=== PATIENT | female | born 1975 | race Caucasian/White ===

== ENCOUNTER → 2021-10-20 15:38 | Outpatient (CLI) | payer OTHER, SELFPAY ==
--- NOTE | ~2021-10-20 | MM_ITS ---
EXAMINATION: MM screening nithya BI w minor HISTORY: Screening mammogram TECHNIQUE: Craniocaudal and mediolateral oblique 3-D tomosynthesis images were obtained and synthetic 2-D images were generated. CAD analysis was submitted and interpreted. COMPARISON: 09/20/2020, 08/25/2019, 07/29/2018 bilateral screening mammogram examinations BREAST PARENCHYMAL COMPOSITION: There are scattered areas of fibroglandular density. FINDINGS: Stable 6.5 mm circumscribed opacity in the posterior upper outer left breast, consistent wi th benign stable lymph node. Low-density circumscribed 5 mm opacity in the upper mid right breast, with benign mammographic featur es including halo sign. There is no evidence of suspicious mass, calcification, or architectural dist ortion to suggest malignancy in either breast. There has been no suspicious interval change. IMPRESSION: 1. No mammographic evidence of malignancy. 2. Recommend routine screening mammography in one year. BI-RADS Category 2: Benign finding(s). Reviewed, dictated and finalized at location A.
== END ==
PROVIDERS: PCP Obstetrics & Gynecology Gynecology; Visit Provider Obstetrics & Gynecology Gynecology
DX: Z12.31 Encounter for screening mammogram for malignant neoplasm of breast (principal)
CPT/HCPCS: 77063; 77067

== ENCOUNTER 2022-02-06 00:32 | Day surgery (SDC) | payer OTHER, SELFPAY ==
[2022-01-24 11:46] VITALS: BMI 28.3
[2022-02-06 06:45] VITALS: BP 151/56; PULSE 90; RESP 18; TEMP 36.1; O2SAT 100
[2022-02-06] MEDS: LACTATED RINGERS 1,000 ML 150 ML IV CONT (07:00)
--- NOTE | 2022-02-06 07:49 | PM.HPGS ---
History of Present Illness History of Present Illness Consent: Risks, benefits, and alternatives have been discussed and questions answered. Patient agrees to proceed with procedure. Chief complaint: neoplasm screening Narrative: Amanda Martinez is a 46 year old female here for first screening colonoscopy Review of Systems Constitutional: Constitutional: Denies headache(s) and Denies weakness Eyes: Eyes: Denies blurry vision ENT: Reports Normal hearing present, Denies headache(s) and Denies neck pain Cardiovascular: Cardiovascular: Denies chest pain and Denies dyspnea Respiratory: Respiratory: Denies dyspnea Gastrointestinal: Gastrointestinal: Reports no additional gastrointestinal complaints Genitourinary: Genitourinary: Denies dysuria Musculoskeletal: Musculoskeletal: Denies neck pain Integumentary/Breasts: Skin/Breast: Denies dry skin Neurologic: Reports Normal hearing present, Denies headache(s) and Denies weakness Psychiatric: Psychiatric: Denies anxiety Endocrine: Endocrine: Denies change in body appearance Hematologic/Lymphatic: Hematologic/Lymphatic: Denies easy bleeding Allergic/Immunologic: Allergic/Immunologic: Denies urticaria PMFSH Past Medical History Medical History (Updated 02/06/22 @ 07:49 by Jovanny Balderrama MD) Colon cancer screening Elevated platelet count HTN (hypertension) Mixed hyperlipidemia Raynaud phenomenon Vitamin D deficiency Family History Family History Mother Diabetes mellitus Heart attack Breast cancer Rheumatoid arthritis Congestive heart failure Pacemaker Other Heart disease Acute myocardial infarction Father Hypertension Mixed hyperlipidemia Father Hypertension Mother Family history of premature coronary heart disease Hypertension Family history of rheumatoid arthritis Family history of elevated blood lipids Family history of diabetes mellitus in first degree relative Grandparent Acute myocardial infarction, Onset Age: 65 Grandmother- Other Family history of lupus erythematosus Social History Social History (Updated 08/30/21 @ 10:36 by Lana Paige) Social History: Smoking status: Never smoker Second hand tobacco smoke exposure: No Alcohol intake: current Drinks per week: 1 Alcohol use details: once a month Substance use: never Substance use type: does not use Living arrangements: with family Additional occupation/education comments: stay at home mom Gender identity (if verbalized by the patient): Female Sexual Orientation (if Verbalized by the Patient): Straight or Heterosexual Spiritual care concerns: No Meds Home Medications and Allergies Home Medications Medication Instructions Recorded Confirmed Type cholecalciferol (vitamin D3) 125 5,000 unit PO DAILY 07/22/19 01/24/22 History mcg (5,000 unit) tablet multivitamin 1 tablet PO DAILY 07/22/19 01/24/22 History norgestimate-ethinyl estradiol 1 tablet PO DAILY 07/22/19 01/24/22 History 0.18 mg/0.215mg/0.25mg-35 mcg(28)tablet (Tri-Sprintec (28)) omega-3 fatty acids 1,000 mg 2,000 mg PO BID 05/12/20 01/24/22 History capsule (Fish Oil Concentrate) cetirizine 10 mg tablet 10 mg PO DAILY 03/08/21 01/24/22 History vitamin B complex 1 cap PO DAILY 03/08/21 01/24/22 History losartan 50 mg-hydrochlorothiazide 1 tablet PO DAILY #90 tabs 08/30/21 01/24/22 Rx 12.5 mg tablet azelastine 137 mcg (0.1 %) nasal 1 spray intranasal Q12H PRN other 01/24/22 01/24/22 History spray aerosol rosuvastatin 5 mg tablet 5 mg PO DAILY 01/24/22 01/24/22 History Allergies Allergy/AdvReac Type Severity Reaction Status Date / Time amlodipine Allergy Unknown arthralgia Verified 02/06/22 06:44 codeine AdvReac Unknown SEVERE Unverified 02/06/22 06:44 NAUSEA Vital Signs Vital Signs - 24 hr 02/06/22 06:45 Temperature 97 F L Pulse Rate 90 Re
--- NOTE | 2022-02-06 07:50 | WPDANESEPPF ---
Anes - Initial Pre Proc Eval Procedure: Operation Date: 02/06/22 08:00 Proposed Procedures p Screening Colonoscopy - Jovanny Balderrama MD Date/Time: 02/06/22 07:50 Surgeon: Jovanny Balderrama MD Pre Op Diagnosis: neoplasm screening Patient Data Age: 46 Gender: F Height: 1.68 m Weight: 80.2 kg Last Vital Signs Temp 97 F L 02/06/22 06:45 Pulse 90 02/06/22 06:45 Resp 18 02/06/22 06:45 BP 151/56 H 02/06/22 06:45 Pulse Ox 100 02/06/22 06:45 O2 Del Method Room Air 02/06/22 06:45 Allergies Allergy/AdvReac Type Severity Reaction Status Date / Time amlodipine Allergy Unknown arthralgia Verified 02/06/22 06:44 codeine AdvReac Unknown SEVERE Unverified 02/06/22 06:44 NAUSEA Home Medications Medication Instructions Recorded Confirmed Type cholecalciferol (vitamin D3) 125 5,000 unit PO DAILY 07/22/19 01/24/22 History mcg (5,000 unit) tablet multivitamin 1 tablet PO DAILY 07/22/19 01/24/22 History norgestimate-ethinyl estradiol 1 tablet PO DAILY 07/22/19 01/24/22 History 0.18 mg/0.215mg/0.25mg-35 mcg(28)tablet (Tri-Sprintec (28)) omega-3 fatty acids 1,000 mg 2,000 mg PO BID 05/12/20 01/24/22 History capsule (Fish Oil Concentrate) cetirizine 10 mg tablet 10 mg PO DAILY 03/08/21 01/24/22 History vitamin B complex 1 cap PO DAILY 03/08/21 01/24/22 History losartan 50 mg-hydrochlorothiazide 1 tablet PO DAILY #90 tabs 08/30/21 01/24/22 Rx 12.5 mg tablet azelastine 137 mcg (0.1 %) nasal 1 spray intranasal Q12H PRN other 01/24/22 01/24/22 History spray aerosol rosuvastatin 5 mg tablet 5 mg PO DAILY 01/24/22 01/24/22 History Patient hx anesthesia problems: none Family hx anesthesia problems: none Results Review: All pre-operative results and documents have been reviewed as part of the pre-operative evaluation. [facility] Past Medical History Medical History (Updated 02/06/22 @ 07:49 by Jovanny Balderrama MD) Colon cancer screening Elevated platelet count HTN (hypertension) Mixed hyperlipidemia Raynaud phenomenon Vitamin D deficiency Family History Family History Mother Diabetes mellitus Heart attack Breast cancer Rheumatoid arthritis Congestive heart failure Pacemaker Other Heart disease Acute myocardial infarction Father Hypertension Mixed hyperlipidemia Father Hypertension Mother Family history of premature coronary heart disease Hypertension Family history of rheumatoid arthritis Family history of elevated blood lipids Family history of diabetes mellitus in first degree relative Grandparent Acute myocardial infarction, Onset Age: 65 Grandmother- Other Family history of lupus erythematosus Social History Social History (Updated 08/30/21 @ 10:36 by Lana Paige) Social History: Smoking status: Never smoker Second hand tobacco smoke exposure: No Alcohol intake: current Drinks per week: 1 Alcohol use details: once a month Substance use: never Substance use type: does not use Living arrangements: with family Additional occupation/education comments: stay at home mom Gender identity (if verbalized by the patient): Female Sexual Orientation (if Verbalized by the Patient): Straight or Heterosexual Spiritual care concerns: No Anes - Eval Final PreProcedure Day of Procedure 02/06/22 07:50 Patient weight: normal Heart: regular rate and rhythm Lungs: clear to auscultation Airway: Mallampati scale class II Neurological: alert and oriented Last oral intake: >/= 8 hours ASA classification: II Emergent: no Anesthetic plan: proceed Anesthesia type and monitoring: general GIVS and standard monitoring Results Review: All pre-operative results and documents have been reviewed as part of the pre-operative evaluation. Informed Consent: The patient's anesthetic plan and its attendant risks and benef
[2022-02-06 08:08] VITALS: BP 125/85; PULSE 73; RESP 21; O2SAT 100
[2022-02-06 08:18] VITALS: BP 136/91; PULSE 79; RESP 20; O2SAT 99
[2022-02-06 08:28] VITALS: BP 138/97; PULSE 71; RESP 21; O2SAT 100
== END 2022-02-06 08:32 | disposition home or self-care (01) ==
PROVIDERS: PCP Family Medicine; Referring Provider Obstetrics & Gynecology Gynecology; Visit Provider Internal Medicine Gastroenterology
PROC: 0DJD8ZZ Inspection of Lower Intestinal Tract, Via Natural or Artificial Opening Endoscopic (ICD-10-PCS; CPT 45378; principal; 2022-02-06 08:00)
DX: Z12.11 Encounter for screening for malignant neoplasm of colon (principal); K64.8 Other hemorrhoids; E55.9 Vitamin D deficiency, unspecified; I10 Essential (primary) hypertension; E78.2 Mixed hyperlipidemia; I73.00 Raynaud's syndrome without gangrene
CPT/HCPCS: 45378; J2704; J7120

== ENCOUNTER 2022-05-03 11:06 | Outpatient (CLI) | payer OTHER, SELFPAY ==
--- NOTE | ~2022-05-03 | MMUS_ITS ---
EXAMINATION: MM diagnostic nithya LT w minor, US breast LT limited HISTORY: Pain and pea-sized lump of upper outer left breast TECHNIQUE: Full field and spot ML, MLO and CC 3-D tomosynthesis images of the left breast were perfor med and synthetic 2-D images were generated. CAD analysis was submitted and interpreted. High resolut ion upper outer quadrant left breast ultrasound was performed. COMPARISON: 10/20/2021 bilateral screening mammogram BREAST PARENCHYMAL COMPOSITION: There are scattered areas of fibroglandular density. FINDINGS: MAMMOGRAPHIC FINDINGS: Benign appearing stable approximately 7 mm circumscribed opacity in the upper outer quadrant of the l eft breast, likely a benign intramammary lymph node. No suspicious mass or architectural distortion, malignant calcification, skin thickening or retractio n or significant new or developing density is detected. ULTRASOUND: No suspicious mass or shadowing, cyst or other significant abnormality is identified in the upper inn er quadrant. IMPRESSION: 1. No mammographic evidence of malignancy 2. Routine mammographic screening is recommended BI-RADS Category 2: Benign finding(s). Reviewed, dictated and finalized at location A. ON TEACHER IMPRESSION: 1. No mammographic evidence of malignancy 2. Routine mammographic screening is recommended BI-RADS Category 2: Benign finding(s).
== END 2022-05-03 11:07 | disposition home or self-care (01) ==
PROVIDERS: PCP Family Medicine; Visit Provider Nurse Practitioner
DX: N64.4 Mastodynia (principal)
CPT/HCPCS: 76642; 77061; 77065; G0279

== ENCOUNTER 2022-07-27 16:22 | Outpatient (CLI) | payer OTHER, SELFPAY ==
--- NOTE | ~2022-07-27 | XR_ITS ---
EXAMINATION: XR chest 2V DATE: 07/27/2022 16:40 INDICATION: Palpitations. TECHNIQUE: Frontal and lateral views of the chest were obtained. COMPARISON: Chest 2 views 07/16/2011, CT abdomen and pelvis 10/14/2016 FINDINGS: There is mild scarring at the lung apices. No pleural effusion or pneumothorax. The heart s ize is normal. IMPRESSION: 1. Mild scarring at the lung apices. Reviewed, dictated and finalized at location A. NSED VOCATIONAL NURSE
== END 2022-07-27 16:23 | disposition home or self-care (01) ==
LOC: ANHIMG 16:27
PROVIDERS: PCP Family Medicine; Visit Provider Nurse Practitioner Gerontology
DX: R00.2 Palpitations (principal); J98.4 Other disorders of lung
CPT/HCPCS: 71046

== ENCOUNTER → 2023-01-02 12:43 | Outpatient (CLI) | payer OTHER, SELFPAY ==
--- NOTE | ~2023-01-02 | MM_ITS ---
EXAMINATION: MM screening nithya BI w minor HISTORY: Screening mammogram TECHNIQUE: Craniocaudal and mediolateral oblique 3-D tomosynthesis images were obtained and synthetic 2-D images were generated. CAD analysis was submitted and interpreted. COMPARISON: No prior mammogram is available for comparison at this institution. BREAST PARENCHYMAL COMPOSITION: FINDINGS: There is no evidence of suspicious mass, calcification, or architectural distortion to sugg est malignancy in either breast. There has been no suspicious interval change. IMPRESSION: 1. No mammographic evidence of malignancy. 2. Recommend routine screening mammography in one year. BI-RADS Category 1: Negative Reviewed, dictated and finalized at location A.
== END ==
PROVIDERS: PCP Nurse Practitioner; Visit Provider Nurse Practitioner
DX: Z12.31 Encounter for screening mammogram for malignant neoplasm of breast (principal)
CPT/HCPCS: 77063; 77067

== ENCOUNTER 2024-01-31 15:53 | Outpatient (CLI) | payer OTHER, SELFPAY ==
--- NOTE | ~2024-01-31 | MM_ITS ---
EXAMINATION: MM screening nithya BI w minor HISTORY: Screening TECHNIQUE: Craniocaudal and mediolateral oblique 3-D tomosynthesis images were obtained and synthetic 2-D images were generated. CAD analysis was submitted and interpreted. COMPARISON: Comparison to multiple prior studies sequentially, with oldest reviewed study dated 10/2018. BREAST PARENCHYMAL COMPOSITION: Not dense: There are scattered areas of fibroglandular density. FINDINGS: There is no evidence of suspicious mass, calcification, or architectural distortion to sugg est malignancy in either breast. There has been no suspicious interval change. IMPRESSION: 1. No mammographic evidence of malignancy. 2. Recommend routine screening mammography in one year. BI-RADS Category 1: Negative Reviewed, dictated and finalized at location B.
== END 2024-01-31 15:54 ==
PROVIDERS: PCP Family Medicine; Visit Provider Obstetrics & Gynecology Gynecology
DX: Z12.31 Encounter for screening mammogram for malignant neoplasm of breast (principal)
CPT/HCPCS: 77063; 77067

== ENCOUNTER 2024-08-27 08:41 | Outpatient (CLI) | payer OTHER, SELFPAY ==
--- OUTSIDE RECORDS SUMMARY | 2024-08-27 09:01 | XMS_ITS | Clinical Summary ---
Author Organization [facility] Address [address] [place] [address] [place] [address] Phone Care Team Providers Care Oyster Harvester Name Role Phone Gema Gonzalez MD Primary Care Provider [phone] Allergies Active Allergy Reactions Criticality Noted Date Comments Codeine Vomiting 10/05/2017 Medications Norgestim-Eth Estrad Triphasic (TRI-SPRINTEC PO) Take by mouth. Activ e AmLODIPine Besylate (NORVASC PO) Take by mouth daily. Active Cetirizine HCl (ZYRTEC PO) Take by mouth daily. Active Cholecalciferol (VITAMIN D PO) Take by mouth daily. Active predniSONE (DELTASONE) 20 MG Tablet 3 po q am times 2 days 2 po q am times 2 days 1 po q am times 3 days Take medication in am with food. 13 Tab 8 Active Additional Information Patient not taking.Reported on 03/29/2018 Active Problems No known active problems Family History Medical History Relation Name Comments Diabetes Mother Rheumatoid Arthritis Mother Relation Name Status Comments Mother Alive Social History Tobacco Use Types Packs/Day Years Used Date Smoking Tobacco: Never Smokeless Tobacco: Never Alcohol Use Standard Drinks/Week Comments No 0 (1 standard drink = 0.6 oz pur e alcohol) Comments No Sex and Gender Information Value Date Recorded Sex Assigned at Not on file Legal Sex Female 9:43 PM CDT Gender Identity Not on file Sexual Orientation Not on file Last Filed Vital Signs Vital Sign Reading Time Taken Comments Blood Pressure 112/80 04/30/2018 9:56 AM PINBALL MACHINE REPAIRER Pulse 96 04/30/2018 9:56 AM PINBALL MACHINE REPAIRER Temperature 37.3 C (99.1 F) 04/30/2018 9:56 AM PINBALL MACHINE REPAIRER Respiratory Rate 16 03/29/2018 2:35 PM CDT Oxygen Saturation 98% 04/30/2018 9:56 AM PINBALL MACHINE REPAIRER Inhaled Oxygen Concentration - - Weight 77.1 kg (170 lb) 04/30/2018 9:56 AM PINBALL MACHINE REPAIRER Height 167.6 cm (5' 6 ) 10/05/2017 12:23 PM CDT Body Mass Index 27.44 10/05/2017 12:23 PM CDT Plan of Treatment Health Maintenance Due Date Last Done Comments Hepatitis C Virus (HCV) Screening 1975 TdaP Immunization 1975 Hepatitis B Immunization (1 of 3 - 19+ 3-dose series) 10/17/1994 Pap Smear 10/17/1996 Cervical Cancer Screening (CCS) 10/17/2005 HPV/Cotest 10/17/2005 Discussion re Starting/Frequency of Mammograms 2015 Colonoscopy 10/17/2020 Colorectal Cancer Screening 10/17/2020 Influenza Immunization (#1) 2024 04/16/2019 SARS-COV-2 Immunization ( season) 2024 06/21/2021, 2020, 09/27/2020 Respiratory Syncytial Virus (RSV) Immunization (Adult) (1 - 1-dose 75+ series) 10/17/2050 Meningococcal Immunization (ACWY) Aged Out No longer eligible b ased on patient's age to complete this topic Pneumococcal Immunization Combined Aged Out No longer eligible b ased on patient's age to complete this topic Rotavirus Immunization Aged Out No lo nger eligible based on patient's age to complete this topic Insurance [address] [place], [place] [address] Care Teams Oyster Harvester Relationship Specialty Start Date End Date Gema Gonzalez MD [address] [facility] [address] [place] [address] PCP - General Family Medicine 10/05/17
--- OUTSIDE RECORDS SUMMARY | 2024-08-27 09:01 | XMS_ITS | Referral Summary ---
Author Organization [address] Address [address] [place] [address] Care Team Providers Care Systems Manager Name Role Phone Gema Gonzalez MD Primary Care Provider Encounters Date Type Department Care Team Description 07/22/2024 10:00 AM INTRAVENOUS THERAPY NURSE Office Visit [facility] [place] [address] [place] [address] Marily Arana, DWAYNE Acute bacterial sinusitis (Primary Dx) from Last 3 Months Allergies Active Allergy Reactions Criticality Noted Date Comments Codeine Vomiting Low Medications norgestimate-et hinyl estradiol (SPRINTEC, 28,) 0.25-35 mg-mcg per tablet take 1 tablet by oral route every day 0 0 4 Active cetirizine (ZyrTEC) 10 mg capsule 10 mg. 0 0 4 Active triamcinolone (NASACORT) 55 mcg nasal inhaler 55 mcg. 0 spray 0 4 Active Additional Information Patient not taking.Reported on 07/22/2024 amLODIPine (NORVASC) 5 mg tablet TK 1 T PO QD 5 8 Active losartan-hydroC HLOROthiazide (HYZAAR) 50-12.5 mg per tablet Take 1 tablet by mouth daily 2 Active rosuvastatin (CRESTOR) 5 mg tablet 2 tablets (10 mg total) 3 Active albuterol HFA (ProAir HFA) 90 mcg/actuation inhalerIndicati ons:Viral upper respiratory infection Inhale 2 puffs every 4 (four) hours as needed for wheezing or shortness of breath 3 each 3 Active amoxicillin-cla vulanate (AUGMENTIN) 875-125 mg per tabletIndicatio ns:Acute bacterial sinusitis Take 1 tablet by mouth 2 (two) times a day for 7 days 14 tablet 5 07/29/19 25 Active Problems Problem Noted Date Diagnosed Date Palpitations 09/25/2017 Other chest pain 09/25/2017 Essential hypertension 09/25/2017 Lipid screening 09/25/2017 Tonsillitis 10/05/2016 Overview (11/16/2016): Tonsillitis Viral upper respiratory tract infection 06/05/20 15 Overview (09/28/2016): Viral upper respiratory infection Sinusitis 05/26/2014 Overview (09/28/2016): Sinusitis Immunizations Immunization Administration Dates Next Due Influenza, Quadrivalent, Spl it, Preservative Free, Intramuscular 04/16/2019 Social History Tobacco Use Types Packs/Day Years Used Date Smoking Tobacco: Never Smokeless Tobacco: Never Tobacco Cessation:Counseling Given: Not Answered Alcohol Use Standard Drinks/Week Comments No 0 (1 standard drink = 0.6 oz pur e alcohol) Comments No Sex and Gender Information Value Date Recorded Sex Assigned at Not on file Legal Sex Female 8:55 AM INTRAVENOUS THERAPY NURSE Gender Identity Female 06/19/2021 4:15 PM INTRAVENOUS THERAPY NURSE Sexual Orientation Not on file Last Filed Vital Signs Vital Sign Reading Time Taken Comments Blood Pressure 130/84 07/22/2024 9:53 AM INTRAVENOUS THERAPY NURSE Pulse 90 07/22/2024 9:53 AM INTRAVENOUS THERAPY NURSE Temperature 36.2 C (97.2 F) 07/22/2024 9:53 AM INTRAVENOUS THERAPY NURSE Respiratory Rate 18 07/22/2024 9:53 AM INTRAVENOUS THERAPY NURSE Oxygen Saturation 98% 07/22/2024 9:53 AM INTRAVENOUS THERAPY NURSE Inhaled Oxygen Concentration - - Weight 91.6 kg (202 lb) 07/22/2024 9:53 AM INTRAVENOUS THERAPY NURSE Height 167.6 cm (5' 6 ) 07/22/2024 9:53 AM INTRAVENOUS THERAPY NURSE Body Mass Index 32.6 07/22/2024 9:53 AM INTRAVENOUS THERAPY NURSE Plan of Treatment Not on file Insurance [employer] IBEW Member Subscriber Plan / Payer (Ef fective 2020-Present) Name:MartinezAmanda motta Relation to Subscriber:Spouse Name:MARTINEZGEE Date of :1970 (Home) Address: [address] [place] [address] [place] [address] Payer ID:[id number] (NAIC) Group ID:[id number] Type:CIGNA HMO/PPO Address: [address] [place] [address] CIGNA IBEW Member Subscriber Plan / Payer ( fective 2020-Present) Name:Amanda Martinez Relation to Subscriber:Spouse Name:GEE MARTINEZ Date of :1970 (Home) Address: [address] [place] [address] [place] [address] Payer ID:[id number] (NAIC) Group ID:[id number] Type:CIGNA HMO/PPO Address: [address] [place] [address] Care Teams Systems Manager Relationship Specialty Start Date End Date Gema Gonzalez MD [address] [email or web address] [address] [place], [place] [id number] [facility] - General 06/05/15
--- OUTSIDE RECORDS SUMMARY | 2024-08-27 09:01 | XMS_ITS | Clinical Summary ---
Author Organization [facility] [address] Address [address] [place] [address] Care Team Providers Care Rim Fire Priming Operator Name Role Phone Gema Gonzalez MD Primary Care Provider Allergies Active Allergy Reactions Criticality Noted Date [...] a day for 7 days 14 tablet 07/29/19 25 Active Problems Problem Noted Date Diagnosed Date Palpitations 09/25/2017 Other chest pain 09/25/2017 Essential hypertension 09/25/2017 Lipid screening 09/25/2017 Tonsillitis 10/05/2016 Overview (11/16/2016): Tonsillitis Viral upper respiratory tract infection 06/05/20 15 Overview (09/28/2016): Viral upper respiratory infection Sinusitis 05/26/2014 Overview (09/28/2016): Sinusitis Encounters Date Type Department Care Team Description 07/22/2024 10:00 AM CATTLE INSPECTOR Office Visit [facility] [place] [address] [place] [id number] Marily Arana, DWAYNE Acute bacterial sinusitis (Primary Dx) from Last 3 Months Immunizations Immunization Administration Dates Next Due Influenza, Quadrivalent, Spl it, Preservative Free, Intramuscular 04/16/2019 Medical History Medical History Date Comments Hypertension Hypertension Hx Other Medical Allergies, seas onal; Comments: KARoberto 10/05/2016 - Heart murmur Family History Medical History Relation Name Comments Hyperlipidemia Father Hypertension Father Heart attack Maternal Grandmother Breast cancer Mother Diabetes Mother Relation Name Status Comments Father Alive Maternal Grandmother (Age 62) Mother Alive Social History Tobacco Use Types Packs/Day Years Used Date Smoking Tobacco: Never Smokeless Tobacco: Never Tobacco Cessation:Counseling Given: Not Answered Alcohol Use Standard Drinks/Week Comments No 0 (1 standard drink = 0.6 oz pur e alcohol) Comments No Sex and Gender Information Value Date Recorded Sex Assigned at Not on file Legal Sex Female 8:55 AM CATTLE INSPECTOR Gender Identity Female 06/19/2021 4:15 PM CATTLE INSPECTOR Sexual Orientation Not on file Obstetrics History Last Filed Vital Signs Vital Sign Reading Time Taken Comments Blood Pressure 130/84 07/22/2024 9:53 AM CATTLE INSPECTOR Pulse 90 07/22/2024 9:53 AM CATTLE INSPECTOR Temperature 36.2 C (97.2 F) 07/22/2024 9:53 AM CATTLE INSPECTOR Respiratory Rate 18 07/22/2024 9:53 AM CATTLE INSPECTOR Oxygen Saturation 98% 07/22/2024 9:53 AM CATTLE INSPECTOR Inhaled Oxygen Concentration - - Weight 91.6 kg (202 lb) 07/22/2024 9:53 AM CATTLE INSPECTOR Height 167.6 cm (5' 6 ) 07/22/2024 9:53 AM CATTLE INSPECTOR Body Mass Index 32.6 07/22/2024 9:53 AM CATTLE INSPECTOR Plan of Treatment Health Maintenance Due Date Last Done Comments Breast Cancer Screening-Mammogram 1975 Cervical Cancer Screening 1975 Colon Cancer Screening-Colonoscopy 1975 Hepatitis C Screening 1975 DTaP/Tdap/Td Vaccine (1 - Tdap) 10/17/1986 Hepatitis B Screening 10/17/1993 Regular Well Visit/Exam 18-64 10/17/1993 Depression Screening 10/04/2018 10/04/2017 Covid-19 Vaccine (3 - 2023-2 5 season) 2024 2020, 09/27/2020 Influenza Vaccine (#1) 2024 9, 03/26/2013 Pneumococcal vaccine <65 Aged Out No longer eligible based on patient's age to [place] [id number] [employer] IBEW Member Subscriber Plan / Payer (Ef fective 2020-Present) Name:Amanda Martinez Relation to Subscriber:Spouse Name:GEE MARTINEZ Date of :1970 (Home) Address: [facility] [place] [address] [place] [address] Payer ID:[id number] (NAIC) Group ID:[id number] Type:CIGMARIO HMO/PPO Address: [facility] [address] [place] [address] [place] [phone] GUILLE IBEW Member Subscriber Plan / Payer (Ef fective 2020-Present) Name:Amanda Martinez Relation to Subscriber:Spouse Name:GEE MARTINEZ Date of :1970 (Home) Address: [address] [place] [address] [place] [address] Payer ID:[id number] (NAIC) Group ID:[id number] Type:CIGMARIO HMO/PPO Address: [facility] [address] [place] [address] Care Teams Rim Fire Priming Operator Relationship Specialty Start Date End Date Gmea Gonzalez MD [address] [facility] [address] [place] [address] PCP - General 06/05/15
--- OUTSIDE RECORDS SUMMARY | 2024-08-27 09:01 | XMS_ITS | Encounter Summary ---
Author Organization [facility] Address [address] [place] [address] Phone Care Team Providers Care Care Professional Name Role Phone Gema Gonzalez MD Primary Care Provider Encounter Details Date Type Department Care Team (Late st Contact Info) Description 09/08/2017 Orders Only [facility] ProviderBrenda MD [address] [phone] Social History Tobacco Use Types Packs/Day Years Used Date Smoking Tobacco: Never Smokeless Tobacco: Never Comments No Sex and Gender Information Value Date Recorded Sex Assigned at Not on file Legal Sex Female 8:55 AM [employer] Gender Identity Female 06/19/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 Historical Provider LAB BLOOD ORDERABLES Loyda l Result documented in this encounter Visit Diagnoses Not on filedocumented in this encounter Care Teams Care Professional Relationship Specialty Start Date End Date Gema Gonzalez MD [address] [facility] [address] [phone] PCP - General 06/05/15 documented as of this encounter
[2024-08-27 19:20] LABS: Alanine Aminotransferase 16 U/L (6-35); Albumin Level 4.5 g/dL (3.5-5.1); Alkaline Phosphatase 87 U/L (38-126); Anion Gap 14 mmol/L (4-12); Aspartate Amino Transferase 55 U/L (14-36); Bilirubin,Total 0.5 mg/dL (0.2-1.3); Blood Urea Nitrogen 15 mg/dL (7-17); Calcium 9.1 mg/dL (8.4-10.2); Carbon Dioxide 21 mmol/L (22-30); Chloride 102 mmol/L (98-107); Cholesterol 164 mg/dL (0-200); Estimated Glomerular Filt Rate > 60; Glucose 87 mg/dL (65-110); HDL Direct 55 mg/dL; Potassium 3.7 mmol/L (3.4-5.0); Sodium 137 mmol/L (137-145); Triglycerides 213 mg/dL (<150)
[2024-08-27 19:31] LABS: LDL Cholesterol Direct 62 mg/dL
[2024-08-27 20:14] LABS: Free T4 Free Thyroxine 0.93 ng/dL (0.78-2.19); Vitamin D 25 Hydroxy 67.3 ng/mL
[2024-08-27 20:26] LABS: Hemoglobin A1C 5.2 % (<5.7)
[2024-08-28 14:39] LABS: Insulin Level Total 8.9 uIU/mL
[2024-08-31 16:25] LABS: Thyroid Peroxidase Antibodies 1 IU/mL (<9)
== END 2024-08-27 08:42 | disposition home or self-care (01) ==
PROVIDERS: PCP Nurse Practitioner Adult Health; Visit Provider Nurse Practitioner Adult Health
DX: E55.9 Vitamin D deficiency, unspecified (principal); R63.5 Abnormal weight gain; Z13.9 Encounter for screening, unspecified
CPT/HCPCS: 36415; 80053; 80061; 82306; 83036; 83525; 83527; 84439; 84443; 86376